=== PATIENT | female | born 1945 | race Caucasian/White ===

== ENCOUNTER → 2016-07-24 | Day surgery (SDC) | payer MEDICARE ==
[~2016-07-24] MED LIST: BUPIVACAINE HCL PF 0.5% 10 ML VIAL ONE; LACTATED RINGER'S 1000 ML INJ 1,000 ML ONE; MIDAZOLAM HCL 2 MG/2 ML VIAL ONE; ONDANSETRON HCL 4 MG/2 ML VIAL IV PUSH ONE; PROPOFOL 100 MG/10 ML INJ IV ONE; ceFAZolin 2 GM PREMIX 50 ML ONE
--- NOTE | 2016-07-24 17:05 | RADRPT ---
EXAM DATE/TIME: 07/24/2016 13:45 [place] COMPARISON: No previous studies available for comparison. INDICATIONS : Right foot 2nd and 3rd digit arthroplasty. MEDICAL HISTORY : None. SURGICAL HISTORY : None. ENCOUNTER: Initial ACUITY: 1 day PAIN SCORE: Non-responsive. LOCATION: Right foot. FINDINGS: The patient is status post placement of surgical hardware within the heads of the right second and th ird metatarsals and pins within the second and third phalanges. Hardware appears to be in good posit ion. Degenerative changes are noted involving the first metatarsophalangeal joint. CONCLUSION: 1. Status post placement of hardware within the second and third metatarsal heads and phalanges as de scribed above. 2. Mild degenerative changes involving the first metatarsophalangeal joint. Pillo Lorenzo MD on July 24, 2016 at 17:01 Board Certified Radiologist. This report was verified electronically.
--- NOTE | 2016-07-28 11:51 | MP ---
cc: ZHOU BRADSHAW DPM DATE OF SURGERY 07/24/2016 PREOPERATIVE DIAGNOSIS Metatarsalgia with second digit and third digit hammertoe. POSTOPERATIVE DIAGNOSIS Metatarsalgia with second digit and third digit hammertoe. PROCEDURES PERFORMED Right second digit and third digit PIPJ fusion with lesser metatarsal osteotomies 2 and 3. SPECIMEN None. ESTIMATED BLOOD LOSS Less than 30 mL. MATERIALS USED Two 2.0 cannulated right medical screws. ANESTHESIA General with local, 20 cc of 0.25% Marcaine plain. TOURNIQUET TIME 53 minutes at a setting of 215 mmHg. PLAN OF ACTIVITY PACU then D/C home once stable per same-day surgery criteria. PROCEDURE IN DETAIL Under mild sedation the patient was brought into the operating room, placed on the operative table in the supine position. Following the induction of general anesthesia, local anesthesia was obtained about the forefoot utilizing standard block fashion. The patient's right foot was then scrubbed, prepped and draped in the usual aseptic fashion. The foot was elevated, exsanguinated and the previously placed mid-ankle tourniquet was inflated to 215 mmHg. The procedure that is to be dictated was the same procedure performed on the second digit as well as the second metatarsal, the same procedure that was performed on the third digit and the third metatarsal. Incision was made over the respective digits. Sharp and blunt dissection was carried down to the level of the PIPJ. Sharp and blunt dissection revealed a bow-strung extensor digitorum longus tendon. A curvilinear incision was made over the level of the MPJ. The sling wing apparatus was then released. A Z-tendon lengthening approach took place exposing the capsule of the MPJ. A linear capsulotomy was performed and at this time and McGlamry elevator was then introduced deep into the MPJ, freeing up plantar and lateral contractures as well as medial. Next, utilizing power instrumentation, a dorsal distal to plantar proximal osteotomy was performed of the metatarsal and the head was then transposed proximally 1.5 mm, then fixated utilizing proper AO technique from the dorsal distal to plantar proximal cannulated screw. The redundant dorsal shelf was transected. Next, power instrumentation was used to remove the proximal phalanx head and the base of the middle phalanx. The wound was flushed with copious amounts normal saline. K-wires were then placed through the middle phalanx to the distal phalanx and retrograded back across the proximal phalanx, securing the PIPJ fusion site, stopping just at the base of the proximal phalanx. This was visualized under fluoroscopy. The two screws were then noted to be in anatomic alignment and good position without any gapping of the osteotomy site of second and third metatarsal heads and two K-wires were noted to be perfectly placed within the center portion of the distal, middle and proximal phalanx securing a PIPJ fusion. The wound was flushed with copious amounts of normal saline. The tendon was then repaired under loose physiologic tension utilizing Vicryl. The deep dermis was closed utilizing Monocryl. The skin was closed utilizing nylon. Upon relieving the tourniquet, there is a prompt hyperemic response to all digits without any delayed capillary fill time. The patient was positioned in neutral position within a fracture shoe, a bulky bandage placed. The patient was transferred from OR to PACU with all vital signs stable. DISCHARGE INSTRUCTIONS 1. She will ice, elevate, heel weight-bear. 2. Followup within 3-5 days. ROLA Guo/MICK /3:54 PM /11:43 AM
== END | disposition home or self-care (01) ==
LOC: ESDC 13:14
PROVIDERS: ATTEND Podiatrist Foot & Ankle Surgery
DX: M20.41 Other hammer toe(s) (acquired), right foot (principal)
CPT/HCPCS: 01480; 28285; 28308; 73620; 76000; C1713; J0690; J2250; J2405; J3010; J7120

== ENCOUNTER → 2016-12-25 | Day surgery (SDC) | payer MEDICARE ==
[~2016-12-25] MED LIST changes: +BUPIVACAINE HCL PF 0.25% 30 ML VIAL ONE; -BUPIVACAINE HCL PF 0.5% 10 ML VIAL ONE; -PROPOFOL 100 MG/10 ML INJ IV ONE; +PROPOFOL 200 MG/20 ML AMP IV ONE
--- NOTE | 2016-12-27 21:53 | MP ---
cc: AUGUSTINEZHOU Sharon DPM DATE OF SURGERY 12/27/16 PREOPERATIVE DIAGNOSIS 1. Right third digit hammertoe with exostosis PIPJ. 2. Left second and third digit hammertoe. 3. Metatarsalgia, left foot. POSTOPERATIVE DIAGNOSIS 1. Right third digit hammertoe with exostosis PIPJ. 2. Left second and third digit hammertoe. 3. Metatarsalgia, left foot. PROCEDURES PERFORMED 1. Right third digit plantar flexor tenotomy with plantar approach PIPJ exostectomy. 2. Left second and third digit DIPJ fusion. 3. Second and third digit lesser metatarsal osteotomies. MATERIALS USED [employer] x2 cannulated dart fire cannulated screws 2.0 mm width, 14 and 12 mm in length x two K-wires. INJECTABLES 30 cc of 0.25% Marcaine plain. ANESTHESIA General with local. DRAINS None. TOURNIQUET TIME On the right foot 14 minutes with a setting of 215 mmHg about the mid calf. Left was 56 minutes. PLAN OF ACTIVITY PACU then DC home once stable per same-day surgery criteria. ESTIMATED BLOOD LOSS Less than 50 ml. SPECIMENS REMOVED None. JUSTIFICATION FOR PROCEDURE A pleasant 71-year-old female with worsening hammertoe. We devised a plan to move forward with surgical intervention. No guarantees given or implied. PROCEDURE IN DETAIL Under mild sedation the patient was brought to the operating room, placed on the operative in the supine position. Following the induction of general anesthesia, local anesthesia was obtained about the respective digits with 0.25% Marcaine plain. The patient's bilateral feet were then scrubbed, prepped and draped in the usual aseptic fashion. The feet were elevated, exsanguinated and the previously placed midcalf tourniquet was inflated. First we start on the right foot. There is noted to be a plantar contracture attitude of the right third digit. A plantar incision was made at the level of the previous PIPJ fusion surgery. Sharp and blunt dissection was carried down to a bow strung flexor digitorum longus tendon. A Z tendon lengthening approach took place freeing up plantar contractures. Next, utilizing a rongeur subperiosteal dissection took place removing any plantar spurring. The wound was flushed with copious amounts of normal saline. The deep dermis was closed utilizing 3-0 Vicryl. Skin was closed utilizing 3-0 nylon. Upon relieving the tourniquet there is a prompt hyperemic response of the right third digit. The left foot was then elevated, exsanguinated and the previously placed mid ankle tourniquet was inflated to 215 mmHg. An incision was made over the respective digit. Sharp and blunt dissection was carried down to the level of the sling wing apparatus with a tight extensor digitorum longus tendon. The sling wing apparatus was then severed and a Z tendon lengthening approach took place lengthening the tendon. An MPJ capsulotomy was then performed and then a lesser metatarsal osteotomy was performed with a bone cut from dorsal distal to plantar proximal of the metatarsal head. The capital fragment was then transposed proximally 2 to 3 mm then fixated utilizing x one cannulated 2.0 [employer] screw. The redundant dorsal shelf was transected to allow excellent range of motion of the digit. Next, sharp and blunt dissection was carried down to the level of the PIPJ. The head of the proximal phalanx was then severed freeing up cartilage down to viable bleeding subchondral bone and the base of the middle phalanx was then transected utilizing power instrumentation. A K-wire was then placed through the middle phalanx, the distal phalanx and then retrograded back across the PIPJ fusion site stopping just short of the MPJ. The wound was then flushed with copious amounts of normal saline. The extensor tendon was then repaired under loose physiologic tension utilizing Vicryl. Skin was then repaired utilizing nylon. The procedure just dictated was the same procedure that was performed on the second and third digit as well as the second and third metatarsal. Upon relieving the tourniquet there is a prompt hyperemic response to all digits. X-rays confirmed excellent placement and correction of the hammertoes. Upon relieving the tourniquet there was a prompt hyperemic response to all digits without any delayed capillary refill time. The patient was then transferred from OR to PACU with all vital signs stable. The patient is partial weight bear to tolerance with bilateral postop shoe. She will ice, elevate. I will see the patient within 3-5 days. ROLA Guo/DEVYN /3:02 PM /9:32 PM
== END | disposition home or self-care (01) ==
LOC: ESDC 11:36
PROVIDERS: ATTEND Podiatrist Foot & Ankle Surgery
DX: M20.41 Other hammer toe(s) (acquired), right foot (principal); M20.42 Other hammer toe(s) (acquired), left foot; M77.42 Metatarsalgia, left foot
CPT/HCPCS: 01470; 01480; 28232; 28285; 28308; 73620; 76000; C1713; J0690; J2250; J2405; J3010; J7120